=== PATIENT | female | born 1975 | race Caucasian/White ===

== ENCOUNTER 2022-11-10 08:14 | Outpatient (CLI) | payer OTHER ==
[2022-11-10 08:36] LABS: BASOPHILS % (AUTO) 0.2 %; EOSINOPHILS # (AUTO) 0.1 10^3/uL (0.0-0.7); EOSINOPHILS % (AUTO) 0.8 %; HCT - HEMATOCRIT 41.9 % (37.0-47.0); HGB - HEMOGLOBIN 13.6 g/dL (12.0-16.0); LYMPHOCYTES # (AUTO) 1.7 10^3/uL (1.5-3.5); MEAN CORPUSCULAR HEMOGLOBIN 28.7 pg (27.0-31.0); MEAN CORPUSCULAR HGB CONC 32.5 g/dL (32.0-36.0); MEAN CORPUSCULAR VOLUME 88.4 fL (81.0-99.0); MEAN PLATELET VOLUME 10.2 fL (7.9-10.8); MONOCYTES # (AUTO) 0.3 10^3/uL (0.0-1.0); MONOCYTES % (AUTO) 5.5 %; NEUTROPHILS # (AUTO) 4.1 10^3/uL (1.5-6.6); NEUTROPHILS % (AUTO) 66.2 %; PLT - PLATELET COUNT 299 10^3/uL (130-450); RED BLOOD COUNT 4.74 10^6/uL (4.20-5.40); RED CELL DISTRIBUTION WIDTH 14.1 % (12.0-15.0); WHITE BLOOD COUNT 6.2 x10^3/uL (4.8-10.8)
[2022-11-10 09:00] LABS: ESTIMATED AVERAGE GLUCOSE 100 mg/dL (70-100); HEMOGLOBIN A1c% 5.1 % (4.27-6.07)
[2022-11-10 09:01] LABS: THYROID STIMULATING HORMONE 1.64 uIU/mL (0.34-5.60)
[2022-11-10 09:08] LABS: FERRITIN 25.5 ng/mL (11.0-306.8)
[2022-11-10 09:13] LABS: % IRON SATURATION 20 % (20-50); ALBUMIN 4.2 g/dL (3.2-5.5); ALBUMIN/GLOBULIN RATIO 1.8 (1.0-2.2); ALKALINE PHOSPHATASE 59 IU/L (42-121); ALT ALANINE AMINOTRANSFERASE 28 IU/L (10-60); AST ASPARTATE AMINOTRANSFERASE 18 IU/L (10-42); BILIRUBIN,TOTAL 0.6 mg/dL (0.2-1.0); BUN - BLOOD UREA NITROGEN 8 mg/dL (6-20); CALCIUM 9.3 mg/dL (8.5-10.3); CARBON DIOXIDE - CO2 27 mmol/L (21-32); CHLORIDE 104 mmol/L (101-111); CHOL/HDL RATIO 4.3 (<4.4); CHOLESTEROL 222 mg/dL; CREATININE 0.7 mg/dL (0.6-1.3); CRP HIGH SENSITIVITY 6.68 mg/L; GFR - MDRD 89 (>89); GLUCOSE 97 mg/dL (74-104); HDL CHOLESTEROL 52 mg/dL; IRON 78 ug/dL (50-212); LDL CHOLESTEROL,CALCULATED 141 mg/dL; LDL/HDL RATIO 2.7 (<4.4); POTASSIUM 4.2 mmol/L (3.5-4.5); SODIUM 138 mmol/L (135-145); TOTAL IRON BINDING CAPACITY 399 ug/dL (250-450); TOTAL PROTEIN 6.6 g/dL (6.4-8.9); TRANSFERRIN 285 mg/dL (203-362); TRIGLYCERIDES 144 mg/dL (48-352); VLDL CHOLESTEROL 29 mg/dL
[2022-11-11 07:09] LABS: PROGESTERONE 6.1 ng/mL (.)
[2022-11-12 15:08] LABS: THYROGLOBULIN ANTIBODY <1.0 IU/mL (0.0-0.9); THYROID PEROXIDASE (TPO) AB <9 IU/mL (0-34)
== END 2022-11-10 08:15 | disposition home or self-care (01) ==
LOC: LAB 08:14
PROVIDERS: ATTEND Naturopath
DX: Z13.0 Encounter for screening for diseases of the blood and blood-forming organs and certain disorders involving the immune mechanism (principal); Z13.220 Encounter for screening for lipoid disorders; Z13.6 Encounter for screening for cardiovascular disorders; Z13.1 Encounter for screening for diabetes mellitus; Z13.29 Encounter for screening for other suspected endocrine disorder; Z79.890 Hormone replacement therapy
CPT/HCPCS: 36415; 80053; 80061; 82728; 83036; 83540; 83721; 84144; 84439; 84443; 84466; 84481; 85025; 86141; 86376; 86800

== ENCOUNTER 2022-11-27 15:07 | Outpatient (CLI) | payer OTHER ==
--- NOTE | 2022-12-06 10:43 | Mammography Report ---
BILATERAL DIGITAL SCREENING MAMMOGRAM 3D/2D: 11/27/2022 CLINICAL: Routine screening. Comparison is made to exam dated: 10/12/2021 mammogram - [facility]. There are scattered areas of fibroglandular density in both breasts (category b / 25%-50% glandular t issue). No significant masses, calcifications, or other findings are seen in either breast. IMPRESSION: NEGATIVE There is no mammographic evidence of malignancy. A 1 year screening mammogram is recommended. Based on the Tyrer Cuzick model (a risk assessment model) the patients lifetime risk is 12.5% and he r 10 year risk is 2.7%. According to the ACR, ACS, and NCCN guidelines, an annual breast MRI exam sunny ng with mammogram is recommended if the patients lifetime risk is 20% or greater. This exam was interpreted at Station ID: [id number]. NOTE: For mammograms, a report in lay terms will be sent to the patient. Approximately 15% of breast malignancies will not be visualized mammographically. In the management of a palpable breast mass, a negative mammogram must not discourage biopsy of a clinically suspicious lesion. Electronically Signed By: Kiana parikh/ofelia:12/05/2022 15:57:13 letter sent: No_Letter ACR BI-RADS Category 1: Negative 3341F PARENCHYMAL PATTERN: (A) - The breast(s) demonstrate(s) scattered fibroglandular densities. BI-RADS CATEGORY: (1) - 1 Mammogram [id number] 1 year screening LATERALITY: (B)
== END 2022-11-27 15:08 | disposition home or self-care (01) ==
LOC: DI 15:07
PROVIDERS: ATTEND Naturopath
DX: Z12.31 Encounter for screening mammogram for malignant neoplasm of breast (principal); R92.323 Mammographic fibroglandular density, bilateral breasts

== ENCOUNTER 2022-12-18 18:54 | Outpatient (CLI) | payer OTHER ==
[2022-12-18 19:18] LABS: BASOPHILS % (AUTO) 0.1 %; EOSINOPHILS # (AUTO) 0.1 10^3/uL (0.0-0.7); EOSINOPHILS % (AUTO) 0.6 %; HCT - HEMATOCRIT 40.4 % (37.0-47.0); HGB - HEMOGLOBIN 13.6 g/dL (12.0-16.0); LYMPHOCYTES # (AUTO) 2.4 10^3/uL (1.5-3.5); LYMPHOCYTES % (AUTO) 28.2 %; MEAN CORPUSCULAR HEMOGLOBIN 29.8 pg (27.0-31.0); MEAN CORPUSCULAR HGB CONC 33.7 g/dL (32.0-36.0); MEAN CORPUSCULAR VOLUME 88.4 fL (81.0-99.0); MEAN PLATELET VOLUME 10.4 fL (7.9-10.8); MONOCYTES # (AUTO) 0.4 10^3/uL (0.0-1.0); MONOCYTES % (AUTO) 4.4 %; NEUTROPHILS # (AUTO) 5.5 10^3/uL (1.5-6.6); NEUTROPHILS % (AUTO) 66.5 %; PLT - PLATELET COUNT 317 10^3/uL (130-450); RED BLOOD COUNT 4.57 10^6/uL (4.20-5.40); RED CELL DISTRIBUTION WIDTH 13.4 % (12.0-15.0); WHITE BLOOD COUNT 8.3 x10^3/uL (4.8-10.8)
[2022-12-18 19:41] LABS: ALBUMIN 4.3 g/dL (3.2-5.5); ALBUMIN/GLOBULIN RATIO 1.5 (1.0-2.2); BILIRUBIN,TOTAL 0.3 mg/dL (0.2-1.0); CALCIUM 9.7 mg/dL (8.5-10.3); CREATININE 0.6 mg/dL (0.6-1.3); CRP - C-REACTIVE PROTEIN 0.8 mg/dL (<0.5); TOTAL PROTEIN 7.2 g/dL (6.4-8.9)
== END 2022-12-18 18:55 | disposition home or self-care (01) ==
LOC: LAB 18:54
PROVIDERS: ATTEND Registered Nurse
DX: R10.11 Right upper quadrant pain (principal); R10.9 Unspecified abdominal pain
CPT/HCPCS: 36415; 80053; 83690; 85025; 86140

== ENCOUNTER 2022-12-21 20:55 | Outpatient (CLI) | payer OTHER ==
--- NOTE | 2022-12-22 12:40 | Ultrasound Report ---
PROCEDURE: Abdomen Limited INDICATIONS: RUQ ABD PAIN, FLANK PAIN TECHNIQUE: Real-time focused scanning was performed of the abdomen, with image documentation. COMPARISONS: None. FINDINGS: Liver: Increased liver echogenicity, commonly mild hepatic steatosis. Gallbladder: Unremarkable. Biliary ducts: Intrahepatic bile ducts are non-dilated. Extrahepatic bile duct caliber measures 5 m m. Normal is 6-7 mm or less in diameter, or 10 mm or less post-cholecystectomy. Pancreas: Visualized portions of the pancreas are sonographically normal. Right kidney: Normal in size and echotexture. Right kidney measures 10.3 cm long. No hydronephrosis or nephrolithiasis. No solid masses. No complex renal cystic lesions which require follow-up. IVC: Intrahepatic inferior vena cava is patent. Miscellaneous: No free abdominal fluid. IMPRESSION: No gallbladder or renal pathology. Mild hepatic steatosis. Reviewed by: Monster Salinas on 12/22/2022 12:38 PM PDT Approved by: Monster Salinas on 12/22/2022 12:38 PM PDT Station ID: [id number]
== END 2022-12-21 20:56 | disposition home or self-care (01) ==
LOC: DI 20:55
PROVIDERS: ATTEND Registered Nurse
DX: R10.11 Right upper quadrant pain (principal)

== ENCOUNTER 2023-01-15 07:06 | Outpatient (CLI) | payer OTHER ==
[2023-01-15] MEDS ORDERED: GADOTERATE MEGLUMINE 10 MMOL/20 ML VIAL ONE (07:20)
--- NOTE | 2023-01-15 09:08 | MRI Report ---
PROCEDURE: THORACIC SPINE WO INDICATIONS: THORACIC SPINE PAIN TECHNIQUE: Noncontrast sagittal T1 spine echo and T2 fast spin echo, sagittal STIR, axial T1 and T2 fast spin ec ho through the thoracic spine. COMPARISON: None. FINDINGS: Image quality: Excellent. Alignment and Curvature: There is normal bony alignment. Bone Marrow: Marrow is of normal overall signal. No acute vertebral body compression fractures. Spinal Cord: Visualized spinal cord is normal in size and signal. Paraspinous Soft Tissues: No paravertebral masses. Miscellaneous: T3-T4: Left facet or ligamentous hypertrophy. No canal stenosis or significant foraminal stenosis. T6-T7: Shallow mild central posterior disc extrusion, with inferiorly extruded disc material extendin g down to the level of the mid T7 vertebral body level, abutting the cord, without canal stenosis or foraminal stenosis. T8-T9, a shallow broad-based right paracentral disc protrusion abuts the cord and likely impinges on the exiting right T8 nerve root in the right lateral recess. No foraminal stenosis. T10-T11: Disc bulge. No canal stenosis or foraminal stenosis. IMPRESSION: 1. At T6-T7, there is a shallow central posterior disc extrusion abutting the cord without canal melyssa nosis. 2. At T8-T9, a shallow broad-based right paracentral disc protrusion abuts the cord without canal melyssa nosis. It likely impinges on the ventral horn of the exiting right T8 nerve root in the right lateral recess. Reviewed by: Max Culp MD on 01/15/2023 9:07 AM PST Approved by: Max Culp MD on 01/15/2023 9:07 AM PST Station ID: [id number]
--- NOTE | 2023-01-15 09:30 | MRI Report ---
PROCEDURE: ABDOMEN W/WO INDICATIONS: FATTY LIVER. Upper right abdominal pain. CONTRAST: 18.2ml Clariscan TECHNIQUE: Coronal ultra fast SE, axial 2D spoiled GE in- and [id number]; axial breath-hold T2 fast SE. Dynam ic axial ultra fast GE during the administration of contrast; post-contrast coronal ultra fast GE or 2D spoiled GE with fat saturation from the hepatic dome to the iliac crests. Optional diffusion weig hted imaging and ADC may be performed. COMPARISON: Abdominal ultrasound 12/21/2022. FINDINGS: Image quality: Excellent. Lung bases and heart: Unremarkable. Liver: No focal lesion. Hepatic steatosis. Gallbladder and biliary tree: No stones or wall thickening. No biliary dilation. Spleen: No splenomegaly. Pancreas: No pancreatic ductal dilation. Adrenals: No adrenal nodule. Kidneys and ureters: No hydronephrosis. No renal cystic lesion which requires follow up. No solid mas s. Bowel and peritoneum: No bowel distension. No pathologic free fluid. Lymph nodes: No central or retroperitoneal adenopathy. Vessels: No infrarenal aortic aneurysm. Bones: No aggressive osseous abnormality. Other: No significant ventral hernia. IMPRESSION: Source for right upper quadrant abdominal pain is not identified. No biliary or pancreatic ductal dil atation. No free fluid. Hepatic steatosis. Reviewed by: Prosper Infante MD on 01/15/2023 9:29 AM [facility] Approved by: Prosper Infante MD on 01/15/2023 9:29 AM PST Station ID: [id number]
[2023-01-15] MEDS ORDERED: GADOTERATE MEGLUMINE 10 MMOL/20 ML VIAL IVP ONE (16:14)
== END 2023-01-15 07:07 | disposition home or self-care (01) ==
LOC: DI 07:06
PROVIDERS: ATTEND Naturopath
DX: M51.24 Other intervertebral disc displacement, thoracic region (principal); M51.34 Other intervertebral disc degeneration, thoracic region; M47.814 Spondylosis without myelopathy or radiculopathy, thoracic region; R10.11 Right upper quadrant pain; K76.0 Fatty (change of) liver, not elsewhere classified
CPT/HCPCS: 72146; 74183; A9575